=== PATIENT | female | born 1995 | race Caucasian/White ===

== ENCOUNTER 2020-06-16 15:11 | Emergency (ER) | payer BC ==
[2020-06-16 15:51] VITALS: BP 119/68; PULSE 93; TEMP 98.5; BMI 27.3
[2020-06-16] MEDS ORDERED: IBUPROFEN 600 MG TABLET (FP) PO ONE ×2 (18:56→19:02)
== END 2020-06-16 19:10 | disposition home or self-care (01) ==
LOC: JER 15:11
DX: M54.5 Low back pain (principal)
CPT/HCPCS: 99283-25